=== PATIENT | female | born 1935 | race Caucasian/White ===

== ENCOUNTER → 2017-01-08 | Outpatient (CLI) | payer MEDICARE, OTHER ==
[~2017-01-08] MED LIST: ACETAMINOPHEN325 MG PO; ADVAIR 115-21 INH; ADVAIR HFA 115-12 GM INH; ALIVE WOMEN'S1 EACH; AMIODARONE HCL100 MG PO; AMIODARONE PO; AMLODIPINE BESY10 MG PO; AMLODIPINE BESYL5 MG PO; ASPIRIN ENTERI325 M1 PO; ASPIRIN81 M1 PO; ASPIRIN81 MG PO; ATARAX; ATARAX PO; ATENOLOL; ATROVENT 0.03%30 ML HHN; ATROVENT NEB; BACTRIM DS TABL1 TA1 PO; BUMEX PO; BUMEX1 MG PO; CALCITRIOL0.25 MCG PO; CALCIUM + VITAM1 TAB PO; CALCIUM 600 W/V1 TA2 PO; CARDIZEM CD240 M1 PO; CARDIZEM LA360 MG PO; CORDARONE200 M1 PO; COUMADIN PO; COUMADIN2.5 MG PO; COUMADIN5 MG PO; DOXYCYCLINE HY100 M1 PO; HYDROCHLOROTHIA25 MG PO; HYDROXYZINE HCL10 MG PO; IMDUR-ER30 MG PO; IPRATROPIUM0.2 MG/ML NEB; K-DUR20 ME1 DOB; K-DUR20 ME1 PO; LANOXIN125 MCG PO; LASIX20 MG PO; LEVAQUIN750 M1 PO; LISINOPRIL PO; LISINOPRIL20 MG PO; LOC PO; LOPRESSOR PO; LORTAB 10-3251 EACH PO; METHIMAZOLE5 MG PO; METOPROLOL TAR25 MG PO; MULTAQ400 MG PO; MULTI VITAMIN1 EACH PO; NITROGLYCERIN0.4 MG SL; NITROGLYGERIN0.4 MG SL; NORVASC PO; PANTOPRAZOLE SO40 MG PO; POTASSIUM CHLO10 ME1 PO; PROTONIX PO; TAPAZOLE10 MG PO; TAPAZOLE5 MG PO; TOPAMAX; VICODIN 5/500 T1 TAB PO; VICODIN PO; VITAMIN D1000 UNIT PO; ZANTAC150 MG PO; [UNRECOGNIZED DRUG - OTHER]
[2017-01-08 13:50] LABS: HEMATOCRIT 38.9 % (35.0-45.0); HEMOGLOBIN 12.7 gm/dL (12.0-16.0); MEAN CELL VOLUME 92.5 FL (83-96); MEAN CORPUSCULAR HEMOGLOBIN 30.3 PG (28-34); MEAN CORPUSCULAR HGB CONC 32.7 g/dL (30-36); MEAN PLATELET VOLUME 7.7 FL (6.5-11.5); RED BLOOD COUNT 4.2 X10e (3.90-5.30); RED CELL DISTRIBUTION WIDTH 13.9 % (11.0-15.5); WHITE BLOOD COUNT 6.2 X10e3 (4.0-10.5)
[2017-01-08 14:13] LABS: ALBUMIN SERUM 4.1 g/dL (3.5-5.0); BILIRUBIN,TOTAL 0.6 mg/dL (0.2-2.0); BUN/CREATININE RATIO 14.5; CALCIUM SERUM 8.7 mg/dL (8.4-10.2); GLOM FILT RATE Estimated 25.5 mL/min (>60); PHOSPHOROUS 3.2 mg/dL (2.5-4.6); POTASSIUM 3.6 mmol/L (3.5-5.1); PROTEIN TOTAL SERUM 7.5 g/dL (6.0-8.3)
[2017-01-08 14:51] LABS: URINE APPEARANCE CLEAR; URINE BILIRUBIN NEG (NEG); URINE BLOOD NEG (NEG); URINE COLOR YELLOW; URINE GLUCOSE NEG (NORM); URINE KETONE NEG (NEG); URINE LEUKOCYTE ESTERASE NEG (NEG); URINE NITRATE NEG (NEG); URINE PH 5.5 (5-8); URINE PROTEIN NEG (NEG); URINE UROBILINOGEN 0.2 MG/DL (NORM)
[2017-01-08 14:54] LABS: MICRO INDICATED? NO
[2017-01-08 16:40] LABS: CREATININE,RANDOM URINE 75 mg/dL; TOTAL PROTEIN,RANDOM URINE <10 mg/dl (<10)
[2017-01-11 23:44] LABS: CALCIUM (PTHINTACT) 9.6 mg/dL (8.6-10.4)
== END | disposition home or self-care (01) ==
LOC: SLAB 13:37
PROVIDERS: Internal Medicine Nephrology
DX: N18.4 Chronic kidney disease, stage 4 (severe) (principal)
CPT/HCPCS: 36415; 80053; 81003; 82310; 82570; 83735; 83970; 84100; 84156; 85027

== ENCOUNTER → 2017-03-12 | Outpatient (CLI) | payer MEDICARE, OTHER ==
[2017-03-12 11:51] LABS: THYROID STIMULATING HORMONE 1.17 uIU/ml (0.34-5.60)
[2017-03-12 15:08] LABS: FREE THYROXIN (T4) 1.06 ng/dL (0.58-1.64)
== END | disposition home or self-care (01) ==
LOC: SLAB 10:32
PROVIDERS: Internal Medicine Endocrinology, Diabetes & Metabolism
DX: E05.10 Thyrotoxicosis with toxic single thyroid nodule without thyrotoxic crisis or storm (principal)
CPT/HCPCS: 36415; 84439; 84443; 84481

== ENCOUNTER 2017-04-04 20:04 | Observation (INO) | payer MEDICARE, OTHER ==
--- NOTE | ~2017-04-04 | EKG ---
PATIENT: ISABELLA PEREZ UNIT #: [id number] Ventricular Rate: 64 BPM Atrial Rate: 326 BPM QRS Duration: 84 ms Q-T Interval: 450 ms QTC Calculation(Bezet): 464 ms Calculated R Mills: 101 degrees Calculated T Mills: 92 degrees Diagnosis Line: Atrial fibrillation Diagnosis Line: Rightward axis Diagnosis Line: Abnormal ECG Diagnosis Line: When compared with ECG of 04-APR-2017 20:12, Diagnosis Line: (unconfirmed) Diagnosis Line: Vent. rate has decreased BY 74 BPM Diagnosis Line: ST no longer depressed in Inferior leads Diagnosis Line: Confirmed by CELIA IRVIN MD ([id number]) on Diagnosis Line: 04/08/2017 4:42:21 PM INTERPRETING MD: BRANDEE WALLACE
--- NOTE | ~2017-04-04 | CR72 ---
[facility] A Service of [facility] & [facility] RADIOLOGY TEXT RESULTS PATIENT: ISABELLA PEREZ LOCATION: [facility] : 36 UNIT #: [id number] AGE: [address]: Andres Tyler MD SEX: F ORDER DR: [id number] [facility] [address] [facility]. [place], [place] [address] [id number] MR#: [id number] Acc #: [id number] NAME: ISABELLA PEREZ. : 1935 SEX: F STUDY DATE/TIME: 04/04/2017 21:32 UNIT: MAO ROOM: STUDY DESCRIPTION: CR Chest Single View Portable Attending Physician: Chalino Augustin M.D. Ordering Physician: Chalino Augustin M.D. Primary Care Physician: Tito Lew M.D. MEDICAL IMAGING REPORT This report is preliminary unless electronic signature is present EXAM Portable chest HISTORY Fever. Heart palpitations and shortness of air today. FINDINGS Cardiac size and pulmonary vascularity are normal. Relatively low lung volumes with moderate elevation of the right hemidiaphragm. Mild linear atelectasis or scarring in both lung bases. 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 IMPRESSION No acute findings and no evidence of active disease. Dictated by... Kvng Cat M.D. THIS IS AN ELECTRONICALLY VERIFIED REPORT Kvng Cat M.D. at 04/05/2017 11:47 AM CLOVIS/janee TD: 04/05/2017 00:16 JOB #: [id number] MEDICAL IMAGING REPORT Page 1 of 1 COPY
--- NOTE | ~2017-04-04 | CO ---
Unit #: [id number] #: [id number] Patient: ISABELLA PEREZ [id number] [address] [place], [place] [address] [id number] I MR#: [id number] NAME: ISABELLA PEREZ ROOM: 574 Age: 82 Sex: F Admission Date: 04/05/2017 : 1935 Attending Physician: Lashonda Ocampo M.D. Primary Care Physician: Tito Lew M.D. Consultation Date: 04/05/2017 CONSULTATION REPORT REASON FOR CONSULTATION Atrial fibrillation with rapid ventricular response. HISTORY OF PRESENT ILLNESS This is an 82-year-old white female, previously known to [facility], as well as [facility]. The patient had a Lexiscan Cardiolite stress test on 04/01/2016, which revealed no ischemia and ejection fraction of 73%. She is known to have a history of COPD, chronic kidney disease, hypothyroidism, hypertension, and recurrent atrial fibrillation on chronic anticoagulation with Coumadin. She presented to the hospital with complaints of palpitations. The palpitations have been present over the last couple of days but were worse yesterday. She has also had a low grade fever of 100.9. She denies a cough, flank pain, or any urinary symptoms. She has had a headache, which is mild. With the episodes of palpitations she has had some chest discomfort that is in the midsternal area. It is described as sharp and shooting. There is no radiation to the neck, jaw, shoulders or arms. It occurs at variable times and can also be with movement. She has had some shortness of breath and lower extremity edema, but she states that this is now worse than normal. She was admitted from the emergency department for atrial fibrillation with rapid ventricular response and low grade fever. Lactic acid was normal at 0.9. White blood cell count was 6.4. Creatinine is 2.0, which appears to be near baseline. Cardiac enzymes were negative. Influenza A and B were negative. Urinalysis revealed trace leuks. Blood cultures were obtained and are pending. INR was within parameter at 2.2. According to past records, the patient's creatinine has ranged from 1.7 to 2.8. Cardiology was asked to follow for atrial fibrillation. PAST MEDICAL HISTORY 1. Lexiscan Cardiolite stress test 04/01/2016 revealed no ischemia. Ejection fraction is 73%. 2. Recurrent atrial fibrillation. 3. Chronic anticoagulation on Coumadin. 4. Hypertension. 5. Chronic kidney disease stage 4, followed by Dr. Sesay. 6. COPD. 7. Hypothyroidism. 8. Reformed tobacco abuse. PAST SURGICAL HISTORY Unchanged from previous admission. Unit #: [id number] #: [id number] Patient: ISABELLA PEREZ HOME MEDICATIONS 1. Potassium 20 mEq p.o. b.i.d. 2. Bumex 2 mg p.o. daily. 3. Tapazole 10 mg p.o. daily. 4. Coumadin 2.5 mg, need to clarify dosing. 5. Calcitrol 0.25 mcg p.o. daily. 6. Advair 1 inhalation b.i.d. 7. Multivitamin 1 tablet p.o. daily. 8. Diltiazem 360 mg p.o. daily. 9. Vitamin D 1,000 units p.o. daily. ALLERGIES Amoxicillin. SOCIAL HISTORY The patient is a reformed smoker. She quit in her early 20s. She denies illicit drug use. She does drink 3-4 glasses of wine per week. FAMILY HISTORY Significant for heart disease. Her brother had a myocardial infarction. Her mother young of a motor vehicle accident. REVIEW OF SYSTEMS Ten point review of systems negative except for details noted above in HPI. PHYSICAL EXAMINATION VITAL SIGNS: Temperature 97.5, pulse 84, blood pressure 120/90. CONSTITUTIONAL: This is an 82-year-old white female in no acute distress. SKIN: Warm and dry. NECK: Supple. Mild jugular venous distention. No hepatojugular reflux. Normal carotid upstrokes. No carotid bruits auscultated. HEART: S1 and S2. Irregularly irregular. No murmur, rubs or gallops. LUNGS: Bilateral breath sounds have good air entry throughout all lung fu. Respirations even and unlabored. No rales, rhonchi or wheezes. ABDOMEN: Soft, nontender, nondistended. Positive bowel sounds auscultated x4 quadrants. No ascites noted. EXTREMITIES: Bilateral extremities have +1 pitting edema. DP and PT pulses 2+. Capillary refill after three seconds. DIAGNOSTIC STUDIES LABORATORY STUDIES: WBC 6.4, hemoglobin 11.9, hematocrit 35.9, platelets 193. Sodium 140, potassium 4.3, chloride 106, CO2 24, BUN 31, creatinine 2.0, glucose 83, AST 33, ALT 30, alk phos 110, lactic acid 0.9, TSH 0.31. Troponin 0.05, and 0.05. Influenza A and B negative. Urinalysis with trace leuks. Blood cultures pending. INR 2.2. Previous creatinine 1.7 and 2.8. CARDIOLOGY STUDIES: Electrocardiogram reveals atrial fibrillation with rapid ventricular response and 138 BPM. T wave abnormality in the inferolateral leads. QTC 436 msec. IMPRESSION 1. Atrial fibrillation with rapid ventricular response, likely permanent. 2. Chronic anticoagulation with Coumadin with therapeutic INR. 3. Low grade fever with questionable etiology. Unit #: [id number] #: [id number] Patient: ISABELLA PEREZ 4. Atypical chest pain. 5. Normal stress test 03/2016. 6. Low TSH. 7. Chronic kidney disease, stage 4. 8. Mild anemia. 9. Hypertension. 10. COPD. 11. Ejection fraction 73%. 12. Reformed tobacco abuse. PLAN 1. The patient presented to the hospital with complaints of palpitations and a low grade fever. She was admitted for further observation. Cardiology was consulted. The patient is on oral diltiazem. Blood pressure is stable but yet heart rate is elevated. Will initiate a beta-micha for heart rate control. 2. Patient's Coumadin will be continued with parameters. Will obtain daily PT and INR. Will review last 2D echocardiogram. 3. TSH level is low. Will check a free T3 and T4. 4. Patient's Tapazole may need to be adjusted. 5. There is no evidence of congestive heart failure on exam. Will continue oral Bumex and potassium as dosed. 6. Patient has some complaints of chest pain. Cardiac enzymes are negative. Will follow symptoms and consider further workup. Dictated by... Janeth Barbosa APRN for Mahi Geiger TD: 04/07/2017 10:14 JOB #: [id number] CONSULTATION REPORT Page 1 of 1 X X CONSULTATION REPORT
--- NOTE | ~2017-04-04 | DS ---
Unit #: [id number] #: [id number] Patient: ISABELLA PEREZ [id number] [address] [place], [place] [address] [id number] I MR#: [id number] NAME: ISABELLA PEREZ. ROOM: 574 Age: 82 Sex: F Admission Date: 04/04/2017 : 1935 Discharge Date: 04/07/2017 Attending Physician: Lashonda Ocampo M.D. Primary Care Physician: Tito Lew M.D. DISCHARGE SUMMARY DIAGNOSIS ON ADMISSION Atrial fibrillation with rapid ventricular rate. DIAGNOSES ON DISCHARGE 1. Atrial fibrillation with rapid ventricular rate, rate controlled. 2. Low-grade fever, resolved. 3. Atypical chest pain, resolved. 4. Chronic kidney disease, stage 3 or 4. 5. Chronic obstructive pulmonary disease. 6. Hypothyroidism. 7. Hypertension. CONSULTATIONS Dr. García. DIAGNOSTIC STUDIES LABS: The patient's creatinine is 2.1, sodium 141, potassium 4.3. The patient's INR is 1.6 today. WBC is 7.7, hemoglobin 12.1, platelet count 233. Blood cultures did not reveal any growth so far. Urinalysis did not reveal any white blood cells. Influenza A and B screen was negative. IMAGING: Chest x-ray did not reveal any acute findings. HOSPITAL COURSE This 82-year-old female was admitted with atrial fibrillation with rapid ventricular rate and low-grade fever. Details are as per admission H and P. Low-grade fever. The patient's workup was negative for fever, and she is afebrile for the last 2-3 days now. Atrial fibrillation with rapid ventricular rate. The patient was seen by cardiology who adjusted her medications. The patient's rate is much controlled now. Today, the patient is comfortable and is not in any acute distress and wants to go home. RECOMMENDATIONS ON DISCHARGE 1. Condition is stable. 2. Activity is as tolerated. MEDICATIONS 1. The patient is advised to continuation home dose of Coumadin, which Unit #: [id number] #: [id number] Patient: ISABELLA PEREZ is 2.5 mg on Sundays, Mondays, Wednesdays and Fridays and a half tablet, which is 1.25 mg, on Tuesdays, and Saturdays. 2. Tapazole 10 mg p.o. daily. 3. Lopressor 12.5 mg p.o. daily. 4. Advair Diskus 1 inhalation b.i.d. 5. Bumex 2 mg p.o. daily. 6. Multivitamin 1 tablet p.o. daily. 7. Potassium chloride 20 mEq p.o. b.i.d. 8. Calcitriol 0.25 mcg p.o. daily. 9. Vitamin D 1,000 units p.o. daily. NOTE: Please make note the patient had episodes of bradycardia. Therefore, cardiology discontinued diltiazem and started on Metoprolol low dose. FOLLOW-UP 1. 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 Alessandro Randhawa, in 2 weeks. 2. The patient is advised to follow up with primary care physician in 1 week and have a CBC and BMP done. 3. The patient is advised to call primary care physician or go to the ER if her condition changes. 4. We will arrange home health regarding home safety assessment and to do PT/OT and nursing to do INR in 2 days and call the patient's primary care physician for Coumadin dosing. I offered the patient Lovenox, but she was afraid of bleeding and does not want to have it. NOTE: The plan was discussed in detail with the patient, who showed complete understanding. Again, she is advised to call primary care physician or go to ER if her condition changes. The plan was also discussed with the patient's family, who showed complete understanding. Dictated by... Mahi Dubon/rigo TD: 04/08/2017 13:10 JOB #: [id number] CC: Alessandro Randhawa M.D. DISCHARGE SUMMARY Page 1 of 1 X Lashonda Ocampo MD X DISCHARGE SUMMARY
--- NOTE | ~2017-04-04 | HP ---
Unit #: [id number] #: [id number] Patient: ISABELLA PEREZ [id number] [address] [place], [place] [address] [id number] I MR#: [id number] NAME: ISABELLA PEREZ. ROOM: 574 Age: 82 Sex: F Admission Date: 04/05/2017 : 1935 Attending Physician: Lashonda Ocampo M.D. Primary Care Physician: Tito Lew M.D. HISTORY AND PHYSICAL CHIEF COMPLAINT Palpitation, afib with ventricular response. DISCUSSION This is an 82-year-old white female with past medical history significant for history of COPD, chronic kidney disease, hypothyroid, hypertension, recurrent afib, on chronic anticoagulation. She was presented to the emergency room with chief complaint of having palpitation for last couple of days. Yesterday before admission she was in the ER, found to have low-grade temperature 100.9. She denies any complaint. No chest pain. No shortness of breath. No fever. No chills. PAST MEDICAL HISTORY 1. History of Cardiolite stress test on 04/11/16 shows no ischemia, ejection fraction 70%. 2. Hypothyroid. 3. COPD. 4. Chronic kidney disease stage 4, followed by Dr. Sesay. 5. Hypertension. 6. History of chronic afib, on Coumadin. 7. History of recurrent afib. HOME MEDICATIONS Home medications are followin. Vitamin D 10,000 units p.o. daily. 2. Diltiazem 360 p.o. daily. 3. Calcitriol 0.25 mcg daily. 4. Advair Diskus inhalation one puff b.i.d. 5. Multivitamin one tablet daily. 6. Coumadin 2.5 mg daily. 7. Tapazole 10 mg daily. 8. Bumex 2 mg daily. 9. Potassium chloride 10 mEq b.i.d. ALLERGIES Aminophylline. FAMILY HISTORY Significant for heart disease, her brother had an OR, her mother young of motorcycle accident. SOCIAL HISTORY Patient is a previous smoker. She quit in early 20s. She denies Unit #: [id number] #: [id number] Patient: ISABELLA PEREZ illicit drug use. She does drink three or four glasses of wine per week. REVIEW OF SYSTEMS All review of systems negative except for history of presenting illness. PHYSICAL EXAMINATION GENERAL: An 82-year-old female lying in the bed comfortably, currently not in any distress. On general examination is alert, awake, oriented x3, comfortable, not in any distress. VITAL SIGNS: Current vitals are following: Temp is 97.5, heart rate 84, blood pressure 129/90. HEENT EXAMINATION: Pupils equally react to light and accommodation. Head is normocephalic and atraumatic. NECK: No jugular venous distention. No carotid bruit. HEART: S1, S2, regular. No murmur. LUNGS: Clear to auscultation. No rhonchi. No wheezing. ABDOMEN: Soft, nontender and nondistended. Bowel sounds positive. EXTREMITIES: 1+ pitting edema positive. Positive pulses bilaterally. SKIN: No rash. NEUROLOGIC: No focal neurologic deficit. Cranial nerves II through XII intact. DIAGNOSTIC STUDIES LABORATORY: On laboratory workup white count 6.5, hemoglobin 11, hematocrit 35.9, platelets 193, sodium 140, potassium 4.3, chloride 106, CO2 24, BUN 31, creatinine 2, glucose 83, AST 33, ALT 30, alkaline phosphatase 110, lactic acid is 0.9, TSH is 0.31, troponin 0.05. Influenza A and B negative. UA trace leukocytes. INR 2.2. CARDIOVASCULAR: EKG reveals afib with a rapid ventricular response at 138 beats. ASSESSMENT AND PLAN 1. Atrial fibrillation with rapid ventricular response: Will admit the patient for 23-hour observation in monitored bed. Ask Cardiology to see and continue Cardizem. 2. Atypical chest pain. 3. Low-grade fever, questionable etiology: Workup in process. 4. Chronic kidney disease stage 4. 5. Mild anemia. 6. Hypertension. 7. Chronic obstructive pulmonary disease. 8. History of hypothyroid. Dictated by Mahi Gonzales/nati TD: 04/11/2017 21:03 JOB #: [id number] Unit #: [id number] #: [id number] Patient: ISABELLA PEREZ HISTORY AND PHYSICAL Page 1 of 1 X X HISTORY AND PHYSICAL
--- NOTE | ~2017-04-04 | EKG ---
PATIENT: ISABELLA PEREZ UNIT #: [id number] Ventricular Rate: 138 BPM Atrial Rate: 120 BPM QRS Duration: 80 ms Q-T Interval: 288 ms QTC Calculation(Bezet): 436 ms Calculated R Franklin: 81 degrees Calculated T Franklin: -77 degrees Diagnosis Line: Atrial fibrillation with rapid ventricular Diagnosis Line: response Diagnosis Line: ST and T wave abnormality, consider inferolateral Diagnosis Line: ischemia Diagnosis Line: Abnormal ECG Diagnosis Line: When compared with ECG of 01-AUG-2016 07:20, Diagnosis Line: ST now depressed in Inferior leads Diagnosis Line: ST more depressed Lateral leads Diagnosis Line: Inverted T waves have replaced nonspecific T wave Diagnosis Line: abnormality in Inferior leads Diagnosis Line: T wave inversion now evident in Lateral leads Diagnosis Line: Confirmed by BISI OLIVEROS MD ([id number]) on 04/06/2017 Diagnosis Line: 4:30:21 PM INTERPRETING MD: ARLIN WALLACE
[~2017-04-04 20:04] MED LIST changes: -CARDIZEM LA360 MG PO; -LOPRESSOR PO; -VITAMIN D1000 UNIT PO
[2017-04-04] MEDS ORDERED: CARDIZEM LA360 MG PO (20:49)
[2017-04-04] MEDS ORDERED: VITAMIN D1000 UNIT PO (20:50)
[2017-04-04 21:00] LABS: BASOPHIL% 0.2 % (0-2.5); EOSINOPHIL% 0.1 % (0.0-7.0); HEMATOCRIT 39.2 % (35.0-45.0); HEMOGLOBIN 13.1 gm/dL (12.0-16.0); LYMPHOCYTE# 1.1 X10e3 (1.0-3.5); LYMPHOCYTE% 9.3 % (17.0-45.0); MEAN CELL VOLUME 90.9 FL (83-96); MEAN CORPUSCULAR HEMOGLOBIN 30.5 PG (28-34); MEAN CORPUSCULAR HGB CONC 33.5 g/dL (30-36); NEUTROPHIL# 10.1 X10e3 (1.5-7.1); NEUTROPHIL% 82.4 % (40-75); PLATELET COUNT 269 X10e3 (140-420); RED BLOOD COUNT 4.31 X10e (3.90-5.30); RED CELL DISTRIBUTION WIDTH 14.1 % (11.0-15.5); WHITE BLOOD COUNT 12.2 X10e3 (4.0-10.5)
[2017-04-04 21:10] LABS: DIFF IND NO
[2017-04-04 21:24] LABS: ALBUMIN SERUM 4.4 g/dL (3.5-5.0); BILIRUBIN,TOTAL 1.6 mg/dL (0.2-2.0); BUN/CREATININE RATIO 15.45; CALCIUM SERUM 9.2 mg/dL (8.4-10.2); CREATININE SERUM 2.2 mg/dL (0.6-1.4); GLOM FILT RATE Estimated 20.4 mL/min (>60); POTASSIUM 3.6 mmol/L (3.5-5.1)
[2017-04-04 21:35] LABS: INR 2.2; PROTHROMBIN TIME (PATIENT) 23.9 SECONDS (9.6-11.5)
[2017-04-04 21:48] LABS: INFLUENZA A NEG (NEG); INFLUENZA B NEG (NEG)
[2017-04-04 22:18] LABS: POC - CKMB <1.0 ng/mL (0.0-7.9); POC - TROPONIN <0.05 ng/mL (<=0.05)
[2017-04-04 23:47] LABS: URINE SOURCE CLEAN CATCH
[2017-04-04 23:50] LABS: URINE APPEARANCE CLEAR; URINE BILIRUBIN NEG (NEG); URINE BLOOD TRACE (NEG); URINE COLOR YELLOW; URINE GLUCOSE NEG (NEG); URINE KETONE NEG (NEG); URINE LEUKOCYTE ESTERASE TRACE (NEG); URINE NITRATE NEG (NEG); URINE PH 6.5 (5-8); URINE PROTEIN NEG (NEG); URINE SPECIFIC GRAVITY 1.014 (1.003-1.035); URINE UROBILINOGEN 0.2 MG/DL (NEG)
[2017-04-04 23:53] LABS: URINE BACTERIA AUWI NEG (NEGATIVE); URINE SQUAMOUS EPITHELIAL CELL NONE SEEN /[HPF]; UWBCS1 AUWI 0-2 (0-5)
[2017-04-05 00:07] LABS: CULTURE INDICATED? NO
[2017-04-05 06:16] LABS: POC - CKMB <1.0 ng/mL (0.0-7.9); POC - TROPONIN <0.05 ng/mL (<=0.05)
[2017-04-05 08:18] LABS: BUN/CREATININE RATIO 15.5; CALCIUM SERUM 8.6 mg/dL (8.4-10.2); GLOM FILT RATE Estimated 22.8 mL/min (>60); POTASSIUM 4.3 mmol/L (3.5-5.1)
[2017-04-05 08:28] LABS: BASOPHIL% 0.4 % (0-2.5); EOSINOPHIL# 0.1 X10e3 (0-0.7); EOSINOPHIL% 0.9 % (0.0-7.0); HEMATOCRIT 35.9 % (35.0-45.0); HEMOGLOBIN 11.9 gm/dL (12.0-16.0); LYMPHOCYTE# 1.1 X10e3 (1.0-3.5); LYMPHOCYTE% 16.5 % (17.0-45.0); MEAN CELL VOLUME 92.2 FL (83-96); MEAN CORPUSCULAR HEMOGLOBIN 30.5 PG (28-34); MEAN PLATELET VOLUME 8.1 FL (6.5-11.5); MONOCYTE# 0.6 X10e3 (0-1.0); MONOCYTE% 9.5 % (3.0-12.0); NEUTROPHIL# 4.7 X10e3 (1.5-7.1); NEUTROPHIL% 72.7 % (40-75); PLATELET COUNT 193 X10e3 (140-420); RED BLOOD COUNT 3.89 X10e (3.90-5.30); RED CELL DISTRIBUTION WIDTH 14.2 % (11.0-15.5); WHITE BLOOD COUNT 6.4 X10e3 (4.0-10.5)
[2017-04-05 08:29] LABS: DIFF IND NO
[2017-04-05 18:04] LABS: FREE THYROXIN (T4) 1.22 ng/dL (0.58-1.64)
[2017-04-06 06:22] LABS: HEMATOCRIT 36.7 % (35.0-45.0); HEMOGLOBIN 12.1 gm/dL (12.0-16.0); MEAN CORPUSCULAR HEMOGLOBIN 30.6 PG (28-34); MEAN CORPUSCULAR HGB CONC 32.9 g/dL (30-36); MEAN PLATELET VOLUME 8.6 FL (6.5-11.5); RED BLOOD COUNT 3.94 X10e (3.90-5.30); RED CELL DISTRIBUTION WIDTH 14.4 % (11.0-15.5); WHITE BLOOD COUNT 7.7 X10e3 (4.0-10.5)
[2017-04-06 06:43] LABS: INR 1.9
[2017-04-06 07:11] LABS: BUN/CREATININE RATIO 18.82; CALCIUM SERUM 8.8 mg/dL (8.4-10.2); CREATININE SERUM 1.7 mg/dL (0.6-1.4); GLOM FILT RATE Estimated 27.8 mL/min (>60); POTASSIUM 3.9 mmol/L (3.5-5.1)
[2017-04-07 06:24] LABS: INR 1.6; PROTHROMBIN TIME (PATIENT) 16.8 SECONDS (9.6-11.5)
[2017-04-07 06:33] LABS: BUN/CREATININE RATIO 19.04; CALCIUM SERUM 8.8 mg/dL (8.4-10.2); CREATININE SERUM 2.1 mg/dL (0.6-1.4); GLOM FILT RATE Estimated 21.5 mL/min (>60); MAGNESIUM 2.2 mg/dL (1.6-3.0); POTASSIUM 4.3 mmol/L (3.5-5.1)
[2017-04-08 06:30] LABS: INR 1.6; PROTHROMBIN TIME (PATIENT) 16.8 SECONDS (9.6-11.5)
[2017-04-08] MEDS ORDERED: COUMADIN2.5 MG PO (15:03)
[2017-04-08] MEDS ORDERED: COUMADIN PO (15:05)
[2017-04-08] MEDS ORDERED: LOPRESSOR PO (15:06)
== END 2017-04-08 16:04 | disposition home or self-care (01) ==
LOC: CED 20:04 → CEDOF 04-05 00:20 → C5C 04-05 00:20
PROVIDERS: Emergency Medicine; Internal Medicine; Internal Medicine Cardiovascular Disease; Nurse Practitioner
DX: I48.91 Unspecified atrial fibrillation (principal); Z79.01 Long term (current) use of anticoagulants; R50.9 Fever, unspecified; R07.89 Other chest pain; I12.9 Hypertensive chronic kidney disease with stage 1 through stage 4 chronic kidney disease, or unspecified chronic kidney disease; N18.4 Chronic kidney disease, stage 4 (severe); D63.1 Anemia in chronic kidney disease; J44.9 Chronic obstructive pulmonary disease, unspecified; E03.9 Hypothyroidism, unspecified; Z87.891 Personal history of nicotine dependence; Z82.49 Family history of ischemic heart disease and other diseases of the circulatory system; Z88.1 Allergy status to other antibiotic agents
CPT/HCPCS: 36415; 71010; 80048; 80053; 81003; 82553; 82947; 83605; 83735; 84439; 84443; 84481; 84484; 85025; 85027; 85610; 87040; 87804; 93005; 96361; 96374; 99285; G0378

== ENCOUNTER → 2017-04-21 | Outpatient (CLI) | payer OTHER, MEDICARE ==
[~2017-04-21] MED LIST changes: +CARDIZEM LA360 MG PO; +LOPRESSOR PO; +VITAMIN D1000 UNIT PO
[2017-04-21 12:35] LABS: HEMATOCRIT 38.3 % (35.0-45.0); HEMOGLOBIN 12.7 gm/dL (12.0-16.0); MEAN CELL VOLUME 92.6 FL (83-96); MEAN CORPUSCULAR HEMOGLOBIN 30.8 PG (28-34); MEAN CORPUSCULAR HGB CONC 33.3 g/dL (30-36); MEAN PLATELET VOLUME 8.3 FL (6.5-11.5); RED BLOOD COUNT 4.14 X10e (3.90-5.30); RED CELL DISTRIBUTION WIDTH 14.6 % (11.0-15.5); WHITE BLOOD COUNT 5.7 X10e3 (4.0-10.5)
[2017-04-21 12:43] LABS: BILIRUBIN,TOTAL 0.8 mg/dL (0.2-2.0); GLOM FILT RATE Estimated 22.8 mL/min (>60); PHOSPHOROUS 3.7 mg/dL (2.5-4.6); POTASSIUM 4.1 mmol/L (3.5-5.1); PROTEIN TOTAL SERUM 7.3 g/dL (6.0-8.3)
[2017-04-21 14:52] LABS: CREATININE,RANDOM URINE 20 mg/dL; TOTAL PROTEIN,RANDOM URINE <10 mg/dl (<10)
[2017-04-23 10:31] LABS: CALCIUM (PTHINTACT) 9.5 mg/dL (8.6-10.4)
== END | disposition home or self-care (01) ==
LOC: SLAB 12:09
PROVIDERS: Internal Medicine Nephrology
DX: N18.4 Chronic kidney disease, stage 4 (severe) (principal)
CPT/HCPCS: 36415; 80053; 82310; 82570; 83970; 84100; 84156; 85027

== ENCOUNTER → 2017-05-15 | Outpatient (CLI) | payer MEDICARE, OTHER ==
--- NOTE | ~2017-05-15 | US77 ---
[facility] A Service of [facility] & [facility] / [facility] RADIOLOGY TEXT RESULTS PATIENT: ISABELLA PEREZ LOCATION: [facility] : 36 UNIT #: [id number] AGE: [address]: Derian Sesay MD SEX: F ORDER DR: [id number] [address] [address] [id number] O MR#: [id number] Acc #: [id number] NAME: ISABELLA PEREZ. : 1935 SEX: F STUDY DATE/TIME: 05/15/2017 11:42 UNIT: [facility] ROOM: STUDY DESCRIPTION: US Kidney Bilateral Complete Attending Physician: Derian Sesay M.D. Referring Physician: Derian Sesay M.D. Ordering Physician: Derian Sesay M.D. Primary Care Physician: Derian Sesay M.D. MEDICAL IMAGING REPORT This report is preliminary unless electronic signature is present. EXAM Renal ultrasound INDICATION Renal cyst. Patient was noted to have a renal cyst on an ultrasound which was performed January 30, 2015. The cyst was located within the left kidney, and there is question of an additional small cyst in the right kidney. Again this is a followup exam. FINDINGS Carranza-scale and color Doppler sonographic images were obtained through the kidneys and bladder. Both kidneys appear to be small in size with a right measuring 8.5 x 4.8 x 4.4 cm. Left kidney measures 8.5 x 4.5 x 3.9 cm. The images of both kidneys are extremely suboptimal. I do think there is some increased echogenicity of both kidneys likely reflecting this patient's known chronic medical renal disease. I do not see any hydronephrosis. The previously identified cysts within the kidneys cannot be seen on these images. If further evaluation is needed, I would suggest further evaluation with CT or MRI. IMPRESSION Extremely technically limited examination with very limited visualization of both kidneys. Both kidneys appear to be small in caliber and somewhat echogenic in keeping with history of medical renal disease. The previously identified cyst cannot be seen on these images; and if further evaluation is desired, I would suggest further evaluation with CT or MRI. Dictated by... Aurora Hall M.D. THIS IS AN ELECTRONICALLY VERIFIED REPORT [facility] A Service of [facility] / [facility] RADIOLOGY TEXT RESULTS PATIENT: ISABELLA PEREZ LOCATION: [facility] : 36 UNIT #: [id number] AGE: [address]: Derian Sesay MD SEX: F ORDER DR: Aurora Hall M.D. at 05/16/2017 5:50 PM AFF/ea TD: 05/16/2017 11:53 JOB #: [id number] MEDICAL IMAGING REPORT Page 1 of 1
== END | disposition home or self-care (01) ==
LOC: SGUS 11:33
DX: N28.1 Cyst of kidney, acquired (principal)
CPT/HCPCS: 76775